=== PATIENT | female | born 1950 | race African-American/Black ===

== ENCOUNTER 2022-05-02 11:55 | Inpatient (IN) ==
[2022-05-02] MEDS ORDERED: Naloxone 0.4 MG/ML INJ IVP PRN (15:03)
[2022-05-02] MEDS ORDERED: Ondansetron ODT 4 MG TAB.RAPDIS SL PRN (15:03)
[2022-05-02 15:41] LABS: Hematocrit 33.7 % (35.3-44.9); Hemoglobin 11.2 g/dL (11.5-15.4); Mean Corpuscular HGB Conc 33.2 g/dL (31.6-35.5); Mean Corpuscular Hemoglobin 29.4 pg (28.0-33.3); Mean Corpuscular Volume 88.5 fL (83.0-100.0); Mean Platelet Volume 9.7 fL (9.4-12.4); Platelet Count 198 K/mcL (140-400); Red Blood Count 3.81 M/mcL (3.82-4.97); Red Cell Distribution Width 13.6 % (11.5-14.5); White Blood Count 3.9 K/mcL (4.3-11.1)
[2022-05-02 15:58] LABS: BUN/Creatinine Ratio 9 (6-26); Blood Urea Nitrogen 15 mg/dL (8-23); Calcium 9.2 mg/dL (8.6-10.3); Carbon Dioxide 25 mEq/L (23-29); Chloride 108 mEq/L (98-107); Glucose 112 mg/dL (70-105); Osmolality,Calculated 290 (280-300); Potassium 4.2 mEq/L (3.5-5.1); Sodium 139 mEq/L (136-145); eGFR For African Americans 39 (> 60); eGFR For Non-African Americans 32 (> 60)
[2022-05-02 16:05] LABS: Troponin I < 0.03 ng/mL (< 0.04)
[2022-05-02] MEDS ORDERED: Dextrose Gel 15 GM/37.5 ML TUBE PO PRN ×2 (16:37)
[2022-05-02] MEDS ORDERED: D5% in Water 1,000 ML IVC PRN (16:37)
[2022-05-02] MEDS ORDERED: *HR* Dextrose 50 % in Water (Syg) 50 ML SYRINGE IVP PRN (16:37)
[2022-05-02 17:21] LABS: INR 3.1; Prothrombin Time 34.2 Seconds (9.4-12.1)
[2022-05-02] MEDS: amLODIPine 5 MG TABLET PO SCH (17:33)
[2022-05-02] MEDS ORDERED: Warfarin perPT PO PRN (18:00)
[2022-05-02] MEDS ORDERED: *HR* Labetalol 20 MG/4 ML SYRINGE IVP ONE (20:36)
[2022-05-02] MEDS: Insulin LISPRO 300 UNITS/3 ML VIAL SUBQ SCH (20:37)
[2022-05-02] MEDS: Gabapentin 300 MG CAPSULE PO SCH (20:37)
[2022-05-03 05:05] LABS: Hematocrit 34.9 % (35.3-44.9); Hemoglobin 11.3 g/dL (11.5-15.4); Mean Corpuscular HGB Conc 32.4 g/dL (31.6-35.5); Mean Corpuscular Hemoglobin 28.7 pg (28.0-33.3); Mean Corpuscular Volume 88.6 fL (83.0-100.0); Mean Platelet Volume 9.7 fL (9.4-12.4); Platelet Count 214 K/mcL (140-400); Red Blood Count 3.94 M/mcL (3.82-4.97); Red Cell Distribution Width 13.5 % (11.5-14.5)
[2022-05-03 05:08] LABS: INR 2.9; Prothrombin Time 32.2 Seconds (9.4-12.1)
[2022-05-03 05:54] LABS: Estimated Average Glucose 154 mg/dl
[2022-05-03] MEDS ORDERED: Regadenoson 0.4 MG/5 ML SYRINGE IVP ONE (06:55)
[2022-05-03] MEDS: Insulin LISPRO 300 UNITS/3 ML VIAL SUBQ SCH ×4 (07:30→20:23)
[2022-05-03] MEDS: amLODIPine 5 MG TABLET PO SCH (10:16)
[2022-05-03] MEDS: Gabapentin 300 MG CAPSULE PO SCH ×2 (10:16→20:22)
[2022-05-03 13:13] LABS: Calcium 9.3 mg/dL (8.6-10.3); Potassium 4.5 mEq/L (3.5-5.1)
[2022-05-03] MEDS: Aspirin 81 MG TAB.CHEW PO SCH (13:53)
[2022-05-03] MEDS ORDERED: *HR* Warfarin 3 MG TABLET PO ONE (18:00)
[2022-05-04 07:00] LABS: Hematocrit 34.8 % (35.3-44.9); Hemoglobin 11.3 g/dL (11.5-15.4); Mean Corpuscular HGB Conc 32.5 g/dL (31.6-35.5); Mean Corpuscular Hemoglobin 29.3 pg (28.0-33.3); Mean Corpuscular Volume 90.2 fL (83.0-100.0); Mean Platelet Volume 9.9 fL (9.4-12.4); Platelet Count 206 K/mcL (140-400); Red Blood Count 3.86 M/mcL (3.82-4.97); Red Cell Distribution Width 13.9 % (11.5-14.5); White Blood Count 4.1 K/mcL (4.3-11.1)
[2022-05-04 07:07] LABS: INR 2.7; Prothrombin Time 29.9 Seconds (9.4-12.1)
[2022-05-04 07:27] LABS: Calcium 9.1 mg/dL (8.6-10.3); Potassium 3.9 mEq/L (3.5-5.1)
[2022-05-04] MEDS: Insulin LISPRO 300 UNITS/3 ML VIAL SUBQ SCH ×4 (07:33→17:47)
[2022-05-04] MEDS: amLODIPine 5 MG TABLET PO SCH (07:40)
[2022-05-04] MEDS: Gabapentin 300 MG CAPSULE PO SCH ×2 (07:40→21:33)
[2022-05-04] MEDS: Aspirin 81 MG TAB.CHEW PO SCH (07:40)
[2022-05-04 10:59] LABS: Calcium 9.1 mg/dL (8.6-10.3); Chol/HDL Ratio 3.7 (0-4.9); Magnesium 1.6 mg/dL (1.6-2.6); Phosphorous 3.1 mg/dL (2.7-4.5)
[2022-05-04] MEDS ORDERED: Perflutren Lipid Microsphere 1.3 ML in 0.9 % Sodium Chloride 8.7 ML IVP PRN (12:44)
[2022-05-04] MEDS ORDERED: *HR* Warfarin 3 MG TABLET PO ONE (18:00)
[2022-05-04 20:18] LABS: INR 2.5; Prothrombin Time 27.7 Seconds (9.4-12.1)
[2022-05-05 05:57] LABS: INR 1.7; Prothrombin Time 18.9 Seconds (9.4-12.1)
[2022-05-05] MEDS ORDERED: *HR* Heparin 5,000 UNIT/ML VIAL IVP ONE (06:56)
[2022-05-05] MEDS ORDERED: *HR* Heparin 5,000 UNIT/ML VIAL IVP PRN ×2 (06:56)
[2022-05-05 07:27] LABS: Hematocrit 36.5 % (35.3-44.9); Hemoglobin 11.8 g/dL (11.5-15.4); Mean Corpuscular HGB Conc 32.3 g/dL (31.6-35.5); Mean Corpuscular Volume 89.7 fL (83.0-100.0); Mean Platelet Volume 9.6 fL (9.4-12.4); Platelet Count 209 K/mcL (140-400); Red Blood Count 4.07 M/mcL (3.82-4.97); Red Cell Distribution Width 13.3 % (11.5-14.5); White Blood Count 4.5 K/mcL (4.3-11.1)
[2022-05-05 07:46] LABS: Heparin anti-factor XA UFH < 0.04 IU/mL (0.30-0.70); INR 1.5; Prothrombin Time 17.1 Seconds (9.4-12.1)
[2022-05-05] MEDS: Insulin LISPRO 300 UNITS/3 ML VIAL SUBQ SCH ×4 (07:58→20:12)
[2022-05-05] MEDS: Gabapentin 300 MG CAPSULE PO SCH ×2 (08:06→20:10)
[2022-05-05] MEDS: Aspirin 81 MG TAB.CHEW PO SCH (08:06)
[2022-05-05] MEDS: amLODIPine 5 MG TABLET PO SCH (08:09)
[2022-05-05] MEDS: Heparin 25,000UNIT/250ML 1/2NS 25,000 UNIT/250 ML IV.SOLN IVC SCH (08:09)
[2022-05-05 09:26] LABS: Calcium 9.3 mg/dL (8.6-10.3); Potassium 4.8 mEq/L (3.5-5.1)
[2022-05-05] MEDS: 0.9 % Sodium Chloride 1,000 ML IVC SCH ×2 (11:17→20:11)
[2022-05-05] MEDS ORDERED: *HR* FentaNYL (PF) 100 MCG/2 ML VIAL ONE (17:14)
[2022-05-05] MEDS ORDERED: *HR* Heparin 10,000 UNIT/10 ML VIAL ONE (17:14)
[2022-05-05] MEDS ORDERED: 0.9 % Sodium Chloride 1,000 ML ONE (17:14)
[2022-05-05] MEDS ORDERED: Heparin 1,000 UNITS/500 mL 500 ML ONE (17:14)
[2022-05-05] MEDS ORDERED: *HR* Midazolam HCl 2 MG/2 ML VIAL ONE (17:14)
[2022-05-05] MEDS ORDERED: Nitroglycerin 1,000 MCG/5 ML VIAL IV ONE (17:15)
[2022-05-05] MEDS ORDERED: Iopamidol - 370 200 ML INFUS..BTL ONE (17:15)
[2022-05-05] MEDS: *HR* Warfarin 5 MG TABLET PO ONE (20:10)
[2022-05-06 01:59] LABS: INR 1.5; Prothrombin Time 16.4 Seconds (9.4-12.1)
[2022-05-06] MEDS: Insulin LISPRO 300 UNITS/3 ML VIAL SUBQ SCH ×4 (08:15→20:12)
[2022-05-06] MEDS: Heparin 25,000UNIT/250ML 1/2NS 25,000 UNIT/250 ML IV.SOLN IVC SCH (08:39)
[2022-05-06] MEDS: Aspirin 81 MG TAB.CHEW PO SCH (08:42)
[2022-05-06] MEDS: Gabapentin 300 MG CAPSULE PO SCH ×2 (08:42→20:22)
[2022-05-06] MEDS: amLODIPine 5 MG TABLET PO SCH (08:42)
[2022-05-06] MEDS: 0.9 % Sodium Chloride 1,000 ML IVC SCH ×3 (09:20→20:15)
[2022-05-06 10:02] LABS: Calcium 9.2 mg/dL (8.6-10.3); Potassium 4.3 mEq/L (3.5-5.1)
[2022-05-06] MEDS ORDERED: *HR* Warfarin 5 MG TABLET PO ONE (18:00)
[2022-05-06] MEDS ORDERED: Warfarin perPT PO PRN (18:00)
[2022-05-06] MEDS: *HR* Warfarin 5 MG TABLET PO ONE (20:23)
[2022-05-07 01:47] LABS: INR 1.4; Prothrombin Time 15.1 Seconds (9.4-12.1)
[2022-05-07] MEDS: 0.9 % Sodium Chloride 1,000 ML IVC SCH ×6 (03:54→16:36)
[2022-05-07] MEDS: Insulin LISPRO 300 UNITS/3 ML VIAL SUBQ SCH ×4 (08:26→21:01)
[2022-05-07] MEDS: Heparin 25,000UNIT/250ML 1/2NS 25,000 UNIT/250 ML IV.SOLN IVC SCH (08:26)
[2022-05-07] MEDS: amLODIPine 5 MG TABLET PO SCH (08:29)
[2022-05-07] MEDS: Aspirin 81 MG TAB.CHEW PO SCH (08:30)
[2022-05-07] MEDS: Gabapentin 300 MG CAPSULE PO SCH ×2 (08:30→21:09)
[2022-05-08] MEDS: 0.9 % Sodium Chloride 1,000 ML IVC SCH ×2 (02:05→11:46)
[2022-05-08 02:34] LABS: INR 1.4; Prothrombin Time 15.2 Seconds (9.4-12.1)
[2022-05-08] MEDS: Insulin LISPRO 300 UNITS/3 ML VIAL SUBQ SCH ×4 (08:47→20:09)
[2022-05-08] MEDS: Heparin 25,000UNIT/250ML 1/2NS 25,000 UNIT/250 ML IV.SOLN IVC SCH (08:59)
[2022-05-08] MEDS: amLODIPine 5 MG TABLET PO SCH (09:00)
[2022-05-08] MEDS: Gabapentin 300 MG CAPSULE PO SCH ×2 (09:00→20:12)
[2022-05-08] MEDS: Aspirin 81 MG TAB.CHEW PO SCH (09:00)
[2022-05-08] MEDS ORDERED: *HR* Warfarin 7.5 MG TABLET PO ONE (18:00)
[2022-05-08] MEDS ORDERED: Acetaminophen 325 MG TABLET PO ONE (23:24)
[2022-05-08] MEDS ORDERED: *HR* Labetalol 20 MG/4 ML SYRINGE IVP ONE (23:24)
[2022-05-09] MEDS: 0.9 % Sodium Chloride 1,000 ML IVC SCH ×2 (04:19→12:16)
[2022-05-09] MEDS: Heparin 25,000UNIT/250ML 1/2NS 25,000 UNIT/250 ML IV.SOLN IVC SCH (05:31)
[2022-05-09 06:09] LABS: INR 1.4; Prothrombin Time 15.9 Seconds (9.4-12.1)
[2022-05-09] MEDS: Insulin LISPRO 300 UNITS/3 ML VIAL SUBQ SCH ×2 (07:18→12:16)
[2022-05-09] MEDS: Gabapentin 300 MG CAPSULE PO SCH (09:22)
[2022-05-09] MEDS: Aspirin 81 MG TAB.CHEW PO SCH (09:23)
[2022-05-09] MEDS: amLODIPine 5 MG TABLET PO SCH (09:23)
[2022-05-09 11:14] VITALS: BP 164/65; PULSE 56; TEMP 97.9; O2SAT 95
[2022-05-09] MEDS ORDERED: *HR* Warfarin 7.5 MG TABLET PO ONE (18:00)
== END 2022-05-09 16:02 | disposition home or self-care (01) | DRG 287 ==
LOC: 3BNU → SUATTDRO 13:49
PROVIDERS: ADMIT Hospitalist; ATTEND Nurse Practitioner